=== PATIENT | male | born 1980 | race Caucasian/White ===

== ENCOUNTER 2016-12-19 20:42 | Emergency (ER) | payer BC ==
--- NOTE | 2016-12-20 19:08 | ER ---
ADMIT: 12/19/2016 RM/LOC: ER [facility] MR#: [id number] [id number] BHARATH VARELA [address] [place] [id number] Emergency Room Report SEX: M AGE: 36 : 1980 DATE: 12/19/2016 HISTORY OF PRESENT ILLNESS: A 36-year-old, presents to the emergency room with a headache, the headache is for the whole day. It is similar to previous headaches. He is not very talkative. He has had a cough also, every time he gets addressed, he starts coughing. He has a history of asthma and GERD. MEDICATIONS: Also takes: 1. Duloxetine. 2. Protonix. 3. Albuterol. ALLERGIES: NO ALLERGIES. PHYSICAL EXAMINATION: VITAL SIGNS: Blood pressure 140/82, heart rate 90, respirations 18, temp is 97.1, O2 sats 100%. Mildly anxious. When asked if he had anybody to drive him home, he was extremely uncooperative and started coughing all over. I had given him originally a mask to put over his face and he was not using it, so I walked out of the room, send the nurse in for shot and discharged the patient. He did receive a breathing treatment that was very helpful. Because he was driving home, I sent him home with Phenergan to take in addition to the Toradol that he had received in the ER. CLINICAL IMPRESSION: Headache and asthma. His cough did stop after he was given the breathing treatment. FERNANDO Phipps / Edward Tucker MD / savana JOB #: [id number] CC: Edward Tucker MD, Attending Physician Jayesh Lunsford MD, Family Physician
== END 2016-12-19 22:30 | disposition home or self-care (01) ==
LOC: ER 20:42
DX: R51 Headache (principal); J45.909 Unspecified asthma, uncomplicated; Z79.899 Other long term (current) drug therapy

== ENCOUNTER 2017-01-20 21:04 | Emergency (ER) | payer BC ==
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
== END 2017-01-20 21:40 | disposition home or self-care (01) ==
LOC: ER 21:04
PROC: 3E0T3CZ (ICD-10-PCS; principal; 2017-01-20)
DX: S60.031A Contusion of right middle finger without damage to nail, initial encounter (principal); Z79.899 Other long term (current) drug therapy; Z88.8 Allergy status to other drugs, medicaments and biological substances; W22.8XXA Striking against or struck by other objects, initial encounter; Y92.009 Unspecified place in unspecified non-institutional (private) residence as the place of occurrence of the external cause